=== PATIENT | male | born 1975 | race Caucasian/White ===

== ENCOUNTER 2022-09-02 21:36 | Inpatient (IN) | payer MEDICAID ==
[~2022-09-02] VITALS: Ht 167.6 cm; Wt 118.4 kg
[2022-09-02 21:53] VITALS: BP_SYST 152
[2022-09-03] MEDS ORDERED: ENOXAPARIN SODIUM 100 MG/ML SYRINGE SUBCUT ONE (02:00)
[2022-09-03] MEDS ORDERED: *LOVENOX 1MG/KG Q12H/PHARMACY XX ONE (02:00)
[2022-09-03] MEDS ORDERED: ACETAMINOPHEN 325 MG TABLET PO PRN (02:00)
[2022-09-03 03:12] LABS: BASOPHILS % (AUTO) 0.6 % (0.0-2.0); EOSINOPHILS # (AUTO) 0.2 K/uL (0.0-0.4); EOSINOPHILS % (AUTO) 2.5 % (0.0-4.0); HEMOGLOBIN 14.6 g/dL (14.0-18.0); LYMPHOCYTES # (AUTO) 3.6 K/uL (1.0-5.5); LYMPHOCYTES % (AUTO) 45.4 % (20.5-51.5); MEAN CORPUSCULAR HEMOGLOBIN 28 pg (27-31); MEAN CORPUSCULAR HGB CONC 34 % (32-36); MEAN CORPUSCULAR VOLUME 83 fL (79.0-98.0); MONOCYTES # (AUTO) 0.6 K/uL (0.0-1.0); MONOCYTES % (AUTO) 7.5 % (1.7-9.3); NEUTROPHILS # (AUTO) 3.4 K/uL (1.8-7.7); PLATELET COUNT (AUTO) 299 K/uL (130-430); RED BLOOD CELL COUNT(AUTO) 5.15 MIL/uL (4.2-6.2); RED CELL DISTRIBUTION WIDTH 13.5 % (9.0-15.0); WHITE BLOOD COUNT (AUTO) 7.8 K/uL (4.8-10.8)
[2022-09-03 05:47] LABS: PROTHROMBIN TIME 10.4 SECS (9.5-12.5)
[2022-09-03 06:10] LABS: CALCIUM 9.2 mg/dL (8.4-11.0); CREATININE 1.1 mg/dL (0.55-1.30); POTASSIUM 4.1 mmol/L (3.5-5.1); TOTAL BILIRUBIN 0.6 mg/dL (0.0-1.0)
[2022-09-03 09:07] VITALS: BP_SYST 131
[2022-09-03] MEDS ORDERED: ESCI10TA PO (11:12)
[2022-09-03] MEDS ORDERED: NEU300 PO (11:12)
[2022-09-03] MEDS ORDERED: ENOXAPARIN SODIUM 100 MG/ML SYRINGE SUBCUT SCH (14:00)
[2022-09-03 14:17] VITALS: BP_SYST 150
[2022-09-03] MEDS ORDERED: APIX5TAB PO (15:35)
[2022-09-03 16:12] VITALS: BP_SYST 150
[2022-09-03 16:15] VITALS: BP_SYST 150
[2022-09-03] MEDS ORDERED: APIXABAN 2.5 MG TABLET PO SCH ×2 (17:00→21:00)
[2022-09-03 18:05] VITALS: BP_SYST 147
[2022-09-03 18:07] VITALS: BP_SYST 147
[2022-09-10] MEDS ORDERED: APIXABAN 2.5 MG TABLET PO SCH ×2 (17:00→21:00)
== END 2022-09-03 17:15 | disposition home or self-care (01) | DRG 197 ==
LOC: SED 21:36 → STU 09-03 01:54
PROVIDERS: ADMIT Internal Medicine; ATTEND Internal Medicine
DX: I82.402 Acute embolism and thrombosis of unspecified deep veins of left lower extremity (principal); D68.9 Coagulation defect, unspecified; Z20.822 Contact with and (suspected) exposure to COVID-19; Z79.01 Long term (current) use of anticoagulants; Z79.899 Other long term (current) drug therapy; Z86.711 Personal history of pulmonary embolism
CPT/HCPCS: 36415; 71045; 73564; 80053; 85025; 85610-TC; 85730-TC; 93971; G0378; J1650

== ENCOUNTER 2023-02-17 12:34 | Emergency (ER) | payer MEDICAID ==
[~2023-02-17] VITALS: Ht 165.1 cm; Wt 97.5 kg
[~2023-02-17 12:34] MED LIST: APIX5TAB PO; ESCI10TA PO; NEU300 PO
[2023-02-17 12:57] VITALS: BP_SYST 114; BP_SYST 175
[2023-02-17] MEDS ORDERED: ONDANSETRON 4 MG ODT TAB PO ONE (13:15)
[2023-02-17] MEDS ORDERED: MECLIZINE HCL 25 MG TABLET (ANITVERT) PO ONE (13:15)
[2023-02-17] MEDS ORDERED: ACETAMINOPHEN 500 MG TABLET PO ONE (13:15)
[2023-02-17 14:14] VITALS: BP_SYST 120
[2023-02-17] MEDS ORDERED: MECL-109 PO (14:45)
[2023-02-17] MEDS ORDERED: ONDA-8 TL (14:45)
== END 2023-02-17 15:03 | disposition home or self-care (01) ==
LOC: SED 12:34
DX: R42 Dizziness and giddiness (principal); R11.0 Nausea; M54.6 Pain in thoracic spine; E11.9 Type 2 diabetes mellitus without complications; Z79.899 Other long term (current) drug therapy
CPT/HCPCS: 99284; J8597; Q0162